=== PATIENT | female | born 1990 | race Caucasian/White ===

== ENCOUNTER 2023-01-25 13:58 | Emergency (ER) | payer MEDICAID ==
[~2023-01-25] VITALS: Ht 172.7 cm; Wt 105.7 kg
--- NOTE | 2023-01-25 14:23 | NUR ---
TO CHAIR B WITH NO DIFF
[2023-01-25 14:24] VITALS: BP 112/73
[2023-01-25] MEDS ORDERED: HYDROcodone/APAP 5/325 MG 1 TAB TAB PO ONE (14:30)
--- NOTE | 2023-01-25 14:41 | NUR ---
The patient's care was reviewed and supervised by JOSE GUTIERREZ RN.
[2023-01-25] MEDS ORDERED: ACET-9525 PO (15:34)
[2023-01-25] MEDS ORDERED: ONDA-188 PO (15:34)
[2023-01-25] MEDS ORDERED: IBUP-2213 PO (15:34)
[2023-01-25 16:01] VITALS: BP 126/83
--- NOTE | 2023-01-25 16:01 | NUR ---
Patient discharged with v/s stable. Written and verbal after care instructions given. Patient alert, oriented and verbalized understanding of instructions. Ambulatory with steady gait. All questions addressed prior to discharge. ID band removed. Patient advised to follow up with PMD. Rx of Hydrocodone-Acetaminophen, Ibuprofen and Zofran given. Opportunity to ask questions provided and answered. WORK NOTE AND CD OF XRAYS GIVEN TO PATIENT.
== END 2023-01-25 16:01 | disposition home or self-care (01) ==
LOC: MED 13:58
DX: S22.41XA Multiple fractures of ribs, right side, initial encounter for closed fracture (principal); Z88.0 Allergy status to penicillin; Z88.1 Allergy status to other antibiotic agents; Z79.899 Other long term (current) drug therapy; W18.30XA Fall on same level, unspecified, initial encounter; Y93.89 Activity, other specified; Y92.89 Other specified places as the place of occurrence of the external cause; Y99.8 Other external cause status
CPT/HCPCS: 71101; 99283